=== PATIENT | male | born 1965 | race Caucasian/White ===

== ENCOUNTER → 2023-07-04 | Outpatient (CLI) | payer BC, SELFPAY ==
--- NOTE | 2023-07-04 15:40 | CT_ITS ---
EXAM: CT MAXILLOFACIAL SINUSES WITHOUT INTRAVENOUS CONTRAST CLINICAL INDICATION: SINUSITIS TECHNIQUE: Helically acquired images were obtained of the maxillofacial sinuses without intravenous contrast. This CT exam was performed using one or more of the following dose reduction techniques: automated exposure control, adjustment of the mA and/or kV according to patient size, and/or use of iterative reconstruction technique. COMPARISON: No relevant prior studies available. FINDINGS: MAXILLARY SINUSES: Near complete opacification with diffuse osteitis. The ostiomeatal units are occluded/obstructed. SPHENOID SINUSES: Complete opacification bilaterally and diffuse osteitis. Occluded sphenoethmoidal recesses. FRONTAL SINUSES: Complete opacification bilaterally. Occluded frontal recesses. ETHMOID AIR CELLS: Diffuse opacification with minimal aeration of left posterior ethmoid air cells. Attenuated ethmoid septae. NASAL CAVITY/SEPTUM: Polypoid opacities are present throughout the nasal cavity which is markedly stenotic. Apparent leftward nasal septal deviation. Possible nasal septal perforation. Nasal turbinates are mostly obscured. BONES/JOINTS: Mild degenerative changes in the visualized cervical spine. ORBITS: No evidence of acute orbital pathology or orbital inflammation. DENTAL: Multiple absent teeth. No periodontal osseous erosion. CT/Sinus/Facial Bone IMPRESSION: Diffuse rhinosinusitis with apparent features of sinonasal polyposis. Recommend ENT consultation if not already performed. Electronically Signed: Jasbir Amaya DO at 22:31 EST ,
== END | disposition home or self-care (01) ==
DX: J02.9 Acute pharyngitis, unspecified (principal); J32.9 Chronic sinusitis, unspecified
CPT/HCPCS: 70486

== ENCOUNTER → 2023-07-30 | Outpatient (CLI) | payer BC, SELFPAY | END | disposition home or self-care (01) | PROVIDERS: Visit Provider Otolaryngology | DX: J32.8 Other chronic sinusitis (principal) | CPT/HCPCS: 87070; 87077; 87186; 87205 ==

== ENCOUNTER → 2023-08-27 | Outpatient (CLI) | payer BC, SELFPAY | END | disposition home or self-care (01) | PROVIDERS: Referring Provider Otolaryngology; Visit Provider Otolaryngology | DX: J32.8 Other chronic sinusitis (principal) | CPT/HCPCS: 87070; 87205 ==

== ENCOUNTER 2023-09-25 06:49 | Day surgery (SDC) | payer BC, SELFPAY ==
[2023-09-25] VITALS (9 sets, daily range): BP systolic 113–150; BP diastolic 66–94; PULSE 62–86; RESP 12–18; TEMP 36.5–37.3; O2SAT 90–97; BMI 36.0
--- NOTE | 2023-09-25 | ETH_PTH ---
PATIENT: MITCH TORRES [place] [facility] [place][id number] AGE/SX: 58/M ROOM: RE09/25/[address]: Dr. Shane Menendez MD : 1965 BED: DIS: 09/25/2023 SPEC #: [id number] RECD: 09/25/23 13:15 STATUS: ANGELES MONROY #: [id number] MAYRA: 09/25/23 00:[address]: Shane Menendez DEPT: SURGICAL PATHOLOGY RECD BY: Franklin Burnham Tissues: A - Ethmoid sinus, NOS B - Ethmoid sinus, NOS Procedures: Surgery Specimen Level IV HEADER OPERATION: Functional endoscopic sinus surgery PRE-OP DIAGNOSIS: Chronic pansinusitis TISSUE SUBMITTED: A- Right sinus contents, B- Left sinus contents MICROSCOPIC DIAGNOSIS A. Right sinus contents, curettings: Acute and chronic sinusitis. Fragments of bone, no pathologic change. B. Left sinus contents, curettings: Acute and chronic sinusitis. Fragments of bone, no pathologic change. / 09/28/2023 MICROSCOPIC DESCRIPTION Slides are reviewed. GROSS DESCRIPTION A. Received in fixative is one container labeled with the patient's name and designated Right sinus contents. The specimen consists of multiple fragments of hemorrhagic soft tissue mixed with fragments of bone measuring in aggregate 7.5 x 3.0 x 0.3cm. Junior Business [employer]st tissue are submitted in two cassettes after decalcification. B. Received in fixative is one container labeled with the patient's name and designated Left sinus contents. The specimen consists of multiple fragments of hemorrhagic soft tissue mixed with fragments of bone measuring in aggregate 5.0 x 3.0 x 0.3cm. Junior Business Analyst tissue are submitted in two cassettes after decalcification. / 09/25/23 TC:2 CPT: 40224g4,43450l7
--- NOTE | 2023-09-25 07:22 | EKG12_ITS ---
Test Reason : PREOP Blood Pressure : / mmHG Vent. Rate : 060 BPM Atrial Rate : 060 BPM P-R Int : 146 ms QRS Dur : 118 ms QT Int : 428 ms P-R-T Axes : 000 -04 038 degrees QTc Int : 428 ms Normal sinus rhythm Non-specific intra-ventricular conduction delay Borderline ECG No previous ECGs available Confirmed by Lex Lentz ([id number]), web editor JAVY DURANT ([id number]) on 10/03/2023 9:01:50 AM Referred By: Presley Menendez Confirmed By:Lex Lentz
[2023-09-25] MEDS: Lactated Ringers 1,000 ML 15 ML IV (07:37)
[2023-09-25 07:51] LABS: Hematocrit 43.8 % (40-54); Hemoglobin 14.8 g/dL (13.0-16.5); Mean Corp Hgb Conc 33.8 g/dL (32-36); Mean Corpuscular Hgb 30.7 pg (27.0-32.0); Mean Corpuscular Volume 90.9 fL (80-94); Mean Platelet Vol. 8.4 fl (6.2-12.0); Platelet Count 291 K/mm3 (150-450); RBC Distribution Width CV 12.6 % (11.6-14.6); RBC Distribution Width SD 42.1 fl (35.1-43.9); Red Blood Count 4.82 M/mm3 (4.6-6.2); White Blood Count 9.2 K/mm3 (4.4-11.0)
[2023-09-25] MEDS: Oxymetazoline 0.05% 1 SPRAY SPRAY.BTL 15 SPRAY ×2 (08:06→10:08)
[2023-09-25 08:15] LABS: Anion Gap 4 (5-15); BUN 26 mg/dL (7-18); BUN/Creat Ratio 38.4 RATIO (10-20); Calcium,Total 8.8 mg/dL (8.5-10.1); Chloride 108 mmol/L (98-107); Creatinine, Serum 0.68 mg/dL (0.70-1.30); EST Glomerular Filtration Rate 128 mL/min (>60); Est Glom Filt Rate - Afr Amer 155 mL/min (>60); Estimated Creatinine Clearance 163.23 ml/min; Glucose 112 mg/dL (74-106); Potassium 3.8 mmol/L (3.5-5.1); Sodium Level 139 mmol/L (136-145)
--- NOTE | 2023-09-25 08:28 | PCM.DC ---
Discharge Instructions Diet Discharge Diet: No restrictions Activity Discharge Activity: Return to Normal Activity Dressing / Incision Call your doctor if your incision/area has: Sudden Increased Bleeding Follow Up Care Please Follow Up With: Shane Menendez MD When: 1 week Test Results: Test results from this visit will be discussed in further detail at your follow-up appointment, if applicable. Discharge Plan Admission Attending Provider: Shane Menendez Primary Care Provider: VALDO MASCORRO Instructions Print Language: Turkish Discharge Orders/Prescriptions Prescriptions: No Action amlodipine 5 mg tablet 5 mg PO QHS losartan-hydrochlorothiazide 50-12.5 mg tablet 1 tab PO DAILY Referrals / Follow Up: VALDO MASCORRO [Other] Disposition Disposition (needs filled in before D/C Order can be placed): Home, Self Care
--- NOTE | 2023-09-25 08:29 | OP.PCM_ITS ---
Problems Associated Problem List Diagnoses (1) Chronic pansinusitis: (2) Sinusitis with nasal polyps: Report of Operation Date of Procedure: 09/25/23 Pre-Operative Diagnosis: 1. chronic pansinusitis 2. sinonasal polyposis Post-Operative Diagnosis: 1. chronic pansinusitis 2. sinonasal polyposis Surgery/Procedure Performed:: 1. endoscopic maxillary antrostomy with removal of contents, right and left 2. endoscopic total ethmoidecotmy, right and left 3. endoscopic sphenoidotomy with removal of contents, right and left 4. endoscopic frontal sinus exploration removal of contents, right and left 5. image guidance CT navigation 6. extensive removal sinonasal polyps Surgeon: Shane Menendez Type of Anesthesia: General Description of Procedure: On the day of the procedure, after appropriate informed consent was obtained, the patient was brought to the operating room and placed in a supine position on the operating room table. The patient was placed under general endotracheal anesthesia by the anesthesiologist. The endotracheal tube was secured.? image guidance navigation was set up on the face and accuracy was confirmed.? the nose was injected with lidocaine/epinephrine and decongested with oxymetazoline- soaked pledgets.? thee zero degree endoscope was used to evaluate the nasal cavity.? the superior attachment of the right and left middle turbinate and uncinate processes were injected with lidocaine/epinephrine.? the left nasal cavity was evaluated.? extensive polyps were removed from the middle meatus, frontal recess and sphenoethmoidal recess. the middle turbinate was medialized.? a revision maxillary antrostomy and uncinectomy were performed with a crow elevator and a kely cut.? the antrostomy was widened with a back- biter.? purulent material was evacuated.? the ethmoid bulla was entered bluntly with the suction.? a total ethmoidectomy was performed with a curette and an upgoing blakesley.?additional polyps were removed. this was taken superiorly to the skull base and laterally to the lamina.? severely ossified ethmoid cells were left in order to avoid a skull base defect. a stankewicz maneuver was performed and no laminar defect was noted.? the natural sphenoid os was widened with the microdebrider and contents were evacuated.? fungus was removed from the sphenoethmoidal recess.? the frontal recess was explored and contents were evacuated.? hemostasis was achieved with suction cautery; renny was placed. the right nasal cavity was evaluated.? extensive polyps were removed from the m iddle meatus, frontal recess and sphenoethmoidal recess. the middle turbinate was medialized.? a revision maxillary antrostomy and uncinectomy were performed with a crow elevator and a kely cut.? the antrostomy was widened with a back- biter.? purulent material was evacuated.? the ethmoid bulla was entered bluntly with the suction.? a total ethmoidectomy was performed with a curette and an upgoing blakesley.? additional polyps were removed this was taken superiorly to the skull base and laterally to the lamina.? a stankewicz maneuver was performed and no laminar defect was noted.? the natural sphenoid os was widened with the microdebrider and contents were evacuated.? fungus was removed from the sphenoethmoidal recess.? the frontal recess was explored and contents were evacuated.? hemostasis was achieved with suction cautery; renny was placed. a nasogastric tube was inserted orally and contents were evacuated.? the table was rotated 90 degrees toward the anesthesiologist and? was subsequently extubated uneventfully.? he was transferred to the PACU in stable condition.
[2023-09-25] MEDS: Lidocaine 1% /Epi 1:100 (50ml) 50 ML VIAL (08:56)
[2023-09-25] MEDS: HYDROcodone Bitartrate/Apap 5/325 Tablet PO (11:59)
== END 2023-09-25 13:12 | disposition home or self-care (01) ==
LOC: SDC 06:50 → AC 06:51
PROVIDERS: Referring Provider Otolaryngology; Visit Provider Otolaryngology
PROC: (CPT 31267; principal; 2023-09-25 08:00)
DX: J32.4 Chronic pansinusitis (principal); J33.8 Other polyp of sinus; I10 Essential (primary) hypertension; Z79.899 Other long term (current) drug therapy
CPT/HCPCS: 31267; 31288; 30115; 00160; 80048; 85027; 88305; 93005; J7120; J2405